=== PATIENT | male | born 1970 | race Caucasian/White ===

== ENCOUNTER 2017-08-29 13:53 | Emergency (ER) | payer OTHER ==
[~2017-08-29] VITALS: Ht 188 cm; Wt 139.5 kg
[2017-08-29 14:23] VITALS: BP 142/89
--- NOTE | 2017-08-29 14:25 | NUR ---
PT AMBULATES BACK TO THE LOBBY
--- NOTE | 2017-08-29 14:36 | NUR ---
PATIENT AMB. TO CHAIR #E
[2017-08-29 14:55] VITALS: BP 158/90
--- NOTE | 2017-08-29 14:55 | NUR ---
PATIENT PRESENTS TO ED WITH C/O CHEST PAIN, DIZZINESS, SOB, NAUSEA STARTED TODAY, HX OF HTN, DM, HEART ATTACK . AAOX4 WITH EVEN AND STEADY GAIT; LUNGS CLEAR BL; HR EVEN AND REGULAR; SKIN IS PINK/WARM/DRY; PATIENT STATES CHEST PAIN OF 7/10 AT THIS TIME; VSS; PATIENT POSITIONED FOR COMFORT; HOB ELEVATED; BEDRAILS UP X2; BED DOWN. ER MD MADE AWARE OF PT STATUS.
--- NOTE | 2017-08-29 16:00 | NUR ---
PATIENT LEFT WITHOUT BEING SEEN BY DR. DOMINGUEZ. NO FURTHER CARE PROVIDED FOR PATIENT. Addendum: 08/29/17 at 1609 by [email or web address] PATIENT LEFT WITHOUT BEING SEEN BY DR. DOMINGUEZ. NO FURTHER CARE PROVIDED FOR PATIENT. DR. DAILEY MADE AWARE.
== END 2017-08-29 16:45 | disposition left against medical advice (07) ==
LOC: MED 13:53
DX: R06.02 Shortness of breath (principal); Z53.21 Procedure and treatment not carried out due to patient leaving prior to being seen by health care provider